=== PATIENT | male | born 1970 | race Caucasian/White ===

== ENCOUNTER → 2020-04-21 | Day surgery (SDC) | payer OTHER ==
[~2020-04-21] VITALS: Ht 188 cm; Wt 91.6 kg
[2020-04-21] VITALS (9 sets, daily range): BP systolic 100–117; BP diastolic 50–70
[~2020-04-21] MED LIST: LR 1000ml ONE; Lidocaine 1% MPF 10mg/ml 5ml ONE
--- NOTE | 2020-04-21 09:53 | Short Stay Surgery H&P ---
History of Present Illness History of Present Illness Chief Complaint see H&P attached HPI Tae Hassan is a 49 year old male who was admitted on for Screening Colonoscopy Patient History Allergies: Coded Allergies: No Known Allergies (Unverified , 04/19/20) Medication History No Active Prescriptions or Reported Meds Physical Exam Vital Signs Last Vital Signs Date Time Temp Pulse Resp B/P (MAP) Pulse Ox O2 Delivery O2 Flow Rate FiO2 04/21/20 09:09 Room Air 04/21/20 09:07 97.5 68 18 117/61 98 Plan Attestation Are the patient's medical conditions optimized for surgery? Bill Aguirre MD Apr 21, 2020 09:53
--- NOTE | 2020-04-21 09:54 | Pre-Procedure Note/Attestation ---
Pre-Procedure Note/Attestation Complete Prior to Procedure Planned Procedure: not applicable Procedure Narrative: colonoscopy Indications for Procedure Pre-Operative Diagnosis: screening Attestation I attest that I discussed the nature of the procedure; its benefits; risks and complications; and alternatives (and the risks and benefits of such alternatives), prior to the procedure, with the patient (or the patient's legal client support representative). I attest that, if there was a reasonable possibility of needing a blood tra nsfusion, the patient (or the patient's legal client support representative) was given the [facility] standardized written summary, pursuant to the [place] Blood Safety Act ([place] Health and Safety Code # 1645, as amended). I attest that I re-evaluated the patient just prior to the surgery and that there has been no change in the patient's H&P, except as documented below: Bill Aguirre MD Apr 21, 2020 09:54
--- NOTE | 2020-04-21 10:25 | Immediate Post-Op Evaluation ---
Immediate Post-Op Evalulation Immediate Post-Op Evalulation Procedure: colonoscopy Date of Evaluation: Apr 21, 2020 Time of Evaluation: 10:25 IV Fluids: 500 Blood Pressure Systolic: 100 Blood Pressure Diastolic: 50 Pulse Rate: 48 Respiratory Rate: 14 O2 Sat by Pulse Oximetry: 98 Temperature (Fahrenheit): 97.8 Nausea: No Vomiting: No Complications none Patient Status: awake, reacts, patent Hydration Status: adequate Drug: none Ladonna Singh CRNA Apr 21, 2020 10:25
--- NOTE | 2020-04-21 10:32 | Anethesia Preoperative Eval ---
Anesthesia Pre-op PMH/ROS General Date of Evaluation: Apr 21, 2020 Time of Evaluation: 09:52 Anesthesiologist: carlos ASA Score: ASA 1 Mallampati Score Class I : Soft palate, uvula, fauces, pillars visible Class II: Soft palate, uvula, fauces visible Class III: Soft palate, base of uvula visible Class IV: Only hard plate visible Mallampati Classification: Class II Surgeon: Blank Diagnosis: screening Surgical Procedure: Colonscopy Anesthesia History: none Family History: no anesthesia problems Allergies: Coded Allergies: No Known Allergies (Unverified , 04/19/20) Medications: see eMAR Patient NPO?: Yes NPO Date: Apr 21, 2020 NPO Time: 00:01 Past Medical History Cardiovascular: Denies: HTN, CAD, NH, valve dz, arrhythmia, other Pulmonary: Denies: asthma, COPD, CAM, other Gastrointestinal/Genitourinary: Denies: GERD, CRI, ESRD, other Neurologic/Psychiatric: Denies: dementia, CVA, depression/anxiety, TIA, other Endocrine: Denies: DM, hypothyroidism, steroids, other HEENT: Denies: cataract (L), cataract (R), glaucoma, [place]AY (L), [place] (R), other Hematology/Immune: Denies: anemia, DVT, bleeding disorder, other Musculoskeletal/Integumentary: Denies: OA, RA, DJD, DDD, edema, other Anesthesia Pre-op Phys. Exam Physician Exam Last Vital Signs Date Time Temp Pulse Resp B/P (MAP) Pulse Ox O2 Delivery O2 Flow Rate FiO2 04/21/20 09:09 Room Air 04/21/20 09:07 97.5 68 18 117/61 98 Constitutional: NAD Neurologic: CN 2-12 intact Cardiovascular: RRR Respiratory: CTA Gastrointestinal: S/NT/ND Airway Exam Mallampati Classification 2 Mallampati Score: Class II MO: full Neck: normal ROM: full Dentures: no upper, no lower Anesthesia Pre-op A/P Studies Pre-op Studies: EKG - sr Risk Assessment & Plan Assessment: declined Plan: mac Status Change Before Surgery: No Pre-Antibiotics Drug: none Ladonna Singh CRNA Apr 21, 2020 10:32
--- NOTE | 2020-04-21 11:19 | 48 Hour Post Anesthesia Eval ---
Post Anesthesia Evaluation Procedure: colonoscopy Date of Evaluation: Apr 21, 2020 Time of Evaluation: 11:19 Blood Pressure Systolic: 111 0: 70 Pulse Rate: 75 Respiratory Rate: 14 O2 Sat by Pulse Oximetry: 98 Airway: patent Nausea: No Vomiting: No Hydration Status: adequate Cardiopulmonary Status: stable Mental Status/LOC: patient returned to baseline Post-Anesthesia Complications: none Follow-up care needed: N/A Ladonna Singh CRNA Apr 21, 2020 11:19
--- NOTE | 2020-04-25 02:14 | Procedure Note ---
DATE OF PROCEDURE: 04/21/2020 GASTROENTEROLOGY PROCEDURE PROCEDURE: Screening colonoscopy. SURGEON: Bill Aguirre M.D. ANESTHESIA: Please see the separate anesthesiologist's notes for details. PRE-ENDOSCOPIC DIAGNOSIS: Screening examination. POST-ENDOSCOPIC DIAGNOSES: 1. A 3 mm external skin tag seen in the anal region. 2. Normal colonoscopy including 10 cm of the terminal ileum. RECOMMENDATIONS: 1. Pathology results for removal of the external skin tag per the patient's request. 2. Follow up with primary physician. 3. Annual stool occult blood examination. 4. Repeat colonoscopy in 10 years. Thank you for asking me to participate in the care of this patient. Bill Aguirre M.D. DR: WEI JOB#: [id number] CC: Michael Trotter M.D.; [facility]; [address] [place] [address], [address]; [place] [address]
== END | disposition home or self-care (01) ==
LOC: GAS 08:47
DX: Z12.11 Encounter for screening for malignant neoplasm of colon (principal); K64.4 Residual hemorrhoidal skin tags
CPT/HCPCS: 45378; 94003; J2704; J7120; U0004; 94150